=== PATIENT | female | born 1980 | race African-American/Black ===

== ENCOUNTER 2018-03-12 13:12 | Inpatient (IN) | payer OTHER ==
[~2018-03-12] VITALS: Ht 154.9 cm; Wt 91.6 kg
[~2018-03-12 13:12] MED LIST: FERR-252 PO; PREN-546 PO
[2018-03-12] MEDS ORDERED: METHYLERGONOVINE 0.2 MG/ML AMP IM PRN (16:35)
[2018-03-12] MEDS ORDERED: OXYTOCIN 10 UNITS/ML VIAL IM SCH (16:35)
[2018-03-12] MEDS ORDERED: CARBOPROST 250 MCG/ML AMP IM PRN (16:35)
[2018-03-12] MEDS ORDERED: PROMETHAZINE 25 MG/ML VIAL IVP PRN (16:35)
[2018-03-12] MEDS ORDERED: NALBUPHINE 10 MG/ML AMP IVP PRN (16:35)
[2018-03-12] MEDS ORDERED: AMPICILLIN 2,000 MG in NACL 0.9% MINI-BAG PLUS 100 ML IV SCH (16:52)
[2018-03-12 18:15] LABS: BASOPHILS % (AUTO) 0.3 % (0.0-2.0); EOSINOPHILS % (AUTO) 0.4 % (0.0-4.0); HEMATOCRIT 27.7 % (36-48); HEMOGLOBIN 9.1 g/dL (12.0-16.0); LYMPHOCYTES # (AUTO) 1.7 K/uL (2.5-16.5); LYMPHOCYTES % (AUTO) 19.3 % (20.5-51.1); MEAN CORPUSCULAR HEMOGLOBIN 22 pg (27-31); MEAN CORPUSCULAR HGB CONC 33 g/dL (33-37); MEAN CORPUSCULAR VOLUME 66.4 fL (80-94); MONOCYTES # (AUTO) 0.6 K/uL (0.8-1.0); MONOCYTES % (AUTO) 7.2 % (1.7-9.3); NEUTROPHILS # (AUTO) 6.5 K/uL (1.8-7.7); NEUTROPHILS % (AUTO) 72.8 % (42.2-75.2); PLATELET COUNT (AUTO) 147 K/uL (140-450); RED BLOOD CELL COUNT(AUTO) 4.17 MIL/uL (4.20-5.40); RED CELL DISTRIBUTION WIDTH 18.4 % (11.6-13.7); WHITE BLOOD COUNT (AUTO) 8.9 K/uL (4.8-10.8)
[2018-03-12 18:34] LABS: ANION GAP 14.8 (8-16); CARBON DIOXIDE 23.3 mmol/L (21-32); CREATININE 0.5 mg/dL (0.6-1.3); POTASSIUM 3.1 mmol/L (3.5-5.1)
[2018-03-12 18:41] LABS: ALBUMIN 2.4 g/dL (3.4-5.0); TOTAL BILIRUBIN 0.3 mg/dL (0.0-1.0)
[2018-03-12] MEDS: LACTATED RINGERS 1,000 ML IV SCH (18:45)
[2018-03-12] MEDS: LABETALOL 200 MG TAB PO SCH (19:45)
[2018-03-12] MEDS ORDERED: LABETALOL 100 MG TAB ONE (19:46)
[2018-03-12] MEDS ORDERED: AMPICILLIN 1,000 MG in NACL 0.9% MINI-BAG PLUS 50 ML IV SCH (20:00)
[2018-03-12] MEDS ORDERED: MISOPROSTOL 25 MCG TAB VG SCH (20:00)
[2018-03-13] MEDS ORDERED: OXYTOCIN 20 UNITS/LR PREMIX 1,000 ML IV ONE (04:07)
[2018-03-13] MEDS ORDERED: OXYTOCIN 20 UNITS in LACTATED RINGERS 1,000 ML IV SCH ×2 (05:25→13:51)
--- NOTE | 2018-03-13 06:59 | NUR ---
PATIENT HAS BEEN SCREENED AND CATEGORIZED LOW RISK. PATIENT WILL BE SEEN WITHIN 7 DAYS OF ADMISSION. 03/19/[address], [facility]
[2018-03-13] MEDS ORDERED: LABETALOL 200 MG TAB ONE ×2 (08:06→21:10)
[2018-03-13] MEDS: LABETALOL 200 MG TAB PO SCH ×2 (09:02→21:10)
[2018-03-13] MEDS: LACTATED RINGERS 1,000 ML IV SCH ×2 (09:03→11:55)
[2018-03-13] MEDS ORDERED: NALBUPHINE 10 MG/ML AMP ONE (10:01)
[2018-03-13] MEDS ORDERED: PROMETHAZINE 25 MG/ML VIAL ONE (10:02)
[2018-03-13] MEDS ORDERED: ROPIVACAINE 0.2%/NS PREMIX 250 ML EPI ONE (10:04)
[2018-03-13] MEDS ORDERED: LABETALOL 100 MG/20 ML VIAL IV PRN (12:15)
[2018-03-13] MEDS ORDERED: LABETALOL 100 MG/20 ML VIAL ONE (12:34)
[2018-03-13] MEDS ORDERED: MAG SULF 2000 MG/WATER PREMIX 100 ML IV SCH (13:00)
[2018-03-13] MEDS ORDERED: OXYTOCIN 10 UNITS/ML VIAL ONE (13:20)
[2018-03-13] MEDS ORDERED: IBUPROFEN 600 MG TAB PO PRN (13:55)
[2018-03-13] MEDS ORDERED: oxyCODONE/APAP 5/325 MG 1 TAB TAB PO PRN (13:55)
[2018-03-13] MEDS ORDERED: MEASLES, MUMPS, AND RUBELLA 1 VIAL SQVAC PRN (13:55)
[2018-03-13] MEDS ORDERED: MAG SULF 20 GM/H2O PREMIX DRIP 500 ML IV ONE (14:40)
[2018-03-13] MEDS: MAG SULF 20 GM/H2O PREMIX DRIP 500 ML IV SCH (14:43)
[2018-03-13] MEDS ORDERED: ROPIVACAINE 0.2%/NS PREMIX 250 ML EPI SCH (16:05)
[2018-03-13] MEDS: ACETAMINOPHEN 325 MG TAB PO PRN (19:48)
[2018-03-13] MEDS ORDERED: ACETAMINOPHEN 325 MG TAB ONE (19:49)
[2018-03-14] MEDS ORDERED: MAG SULF 20 GM/H2O PREMIX DRIP 500 ML IV ONE (01:07)
[2018-03-14] MEDS: MAG SULF 20 GM/H2O PREMIX DRIP 500 ML IV SCH (01:28)
[2018-03-14] MEDS ORDERED: ACETAMINOPHEN 325 MG TAB ONE (07:57)
[2018-03-14] MEDS ORDERED: LABETALOL 200 MG TAB ONE (09:01)
[2018-03-14 10:16] LABS: BASOPHILS % (AUTO) 0.2 % (0.0-2.0); EOSINOPHILS % (AUTO) 0.3 % (0.0-4.0); HEMATOCRIT 26.5 % (36-48); HEMOGLOBIN 8.7 g/dL (12.0-16.0); LYMPHOCYTES # (AUTO) 1.6 K/uL (2.5-16.5); LYMPHOCYTES % (AUTO) 16.9 % (20.5-51.1); MEAN CORPUSCULAR HEMOGLOBIN 22 pg (27-31); MEAN CORPUSCULAR HGB CONC 33 g/dL (33-37); MEAN CORPUSCULAR VOLUME 67.5 fL (80-94); MONOCYTES # (AUTO) 0.6 K/uL (0.8-1.0); MONOCYTES % (AUTO) 5.9 % (1.7-9.3); NEUTROPHILS # (AUTO) 7.3 K/uL (1.8-7.7); NEUTROPHILS % (AUTO) 76.7 % (42.2-75.2); PLATELET COUNT (AUTO) 143 K/uL (140-450); RED BLOOD CELL COUNT(AUTO) 3.92 MIL/uL (4.20-5.40); RED CELL DISTRIBUTION WIDTH 18.4 % (11.6-13.7); WHITE BLOOD COUNT (AUTO) 9.5 K/uL (4.8-10.8)
[2018-03-14] MEDS: ACETAMINOPHEN 325 MG TAB PO PRN (17:24)
[2018-03-15] MEDS: LABETALOL 200 MG TAB PO SCH (09:04)
[2018-03-15] MEDS: ACETAMINOPHEN 325 MG TAB PO PRN (09:04)
== END 2018-03-15 14:25 | disposition home or self-care (01) | DRG 560 ==
LOC: MLD 13:12 → OBSVTOIN 16:32 → MLD 18:34 → MFCC 03-14 15:40
PROVIDERS: ADMIT Obstetrics & Gynecology; ATTEND Obstetrics & Gynecology
PROC: 10E0XZZ Delivery of Products of Conception, External Approach (ICD-10-PCS; principal; 2018-03-13)
PROC: 10907ZC Drainage of Amniotic Fluid, Therapeutic from Products of Conception, Via Natural or Artificial Opening (ICD-10-PCS; 2018-03-13)
PROC: 00HU33Z Insertion of Infusion Device into Spinal Canal, Percutaneous Approach (ICD-10-PCS; 2018-03-13)
PROC: 3E0R3BZ Introduction of Anesthetic Agent into Spinal Canal, Percutaneous Approach (ICD-10-PCS; 2018-03-13)
DX: O14.94 Unspecified pre-eclampsia, complicating childbirth (principal); E66.01 Morbid (severe) obesity due to excess calories; O99.214 Obesity complicating childbirth; Z37.0 Single live birth; O69.1XX0 Labor and delivery complicated by cord around neck, with compression, not applicable or unspecified; Z3A.38 38 weeks gestation of pregnancy; Z68.38 Body mass index [BMI] 38.0-38.9, adult; Z28.21 Immunization not carried out because of patient refusal
CPT/HCPCS: G0378 ×3; 36415; 51702; 59025; 59409; 76815; 80053; 82948; 83735; 85025; 85379; 85384; 85730; 86592; 86886; 86900; 86901; 87653-90; J2300; J2550; J2590; J2795; J3475; J3490; J7120; Q0092